=== PATIENT | female | born 1975 | race African-American/Black ===

== ENCOUNTER 2020-08-08 13:13 | Outpatient (CLI) | payer OTHER | END 2020-08-08 22:27 | disposition home or self-care (01) | LOC: LAB 13:13 | DX: Z20.828 Contact with and (suspected) exposure to other viral communicable diseases (principal); J02.9 Acute pharyngitis, unspecified | CPT/HCPCS: 87635; G2023; U0003 ==

== ENCOUNTER 2020-08-20 10:36 | Outpatient (CLI) | payer OTHER | END 2020-08-20 23:23 | disposition home or self-care (01) | LOC: MAMMO 10:36 | DX: Z12.31 Encounter for screening mammogram for malignant neoplasm of breast (principal) ==

== ENCOUNTER 2020-09-02 10:08 | Outpatient (CLI) | payer OTHER | END 2020-09-02 19:04 | disposition home or self-care (01) | LOC: MAMMO 10:08 | DX: N63.20 Unspecified lump in the left breast, unspecified quadrant (principal); N63.10 Unspecified lump in the right breast, unspecified quadrant; R92.8 Other abnormal and inconclusive findings on diagnostic imaging of breast ==

== ENCOUNTER 2020-11-11 09:12 | Outpatient (CLI) | payer OTHER ==
[2020-11-11 09:39] LABS: PLATELET COUNT 281 K/uL (152-353)
== END 2020-11-11 23:15 | disposition home or self-care (01) ==
LOC: RAD 09:12
PROVIDERS: ATTEND Family Medicine
DX: R10.9 Unspecified abdominal pain (principal); K21.9 Gastro-esophageal reflux disease without esophagitis; R11.0 Nausea; M54.9 Dorsalgia, unspecified; Z98.890 Other specified postprocedural states
CPT/HCPCS: 36415; 80053; 81000; 82150; 83690; 84439; 84443; 85027

== ENCOUNTER 2020-12-05 09:38 | Outpatient (CLI) | payer OTHER | END 2020-12-05 21:49 | disposition home or self-care (01) | LOC: RAD 09:38 | PROVIDERS: ATTEND Family Medicine | DX: M25.511 Pain in right shoulder (principal) ==

== ENCOUNTER 2021-01-09 09:25 | Outpatient (CLI) | payer OTHER ==
[2021-01-09 09:41] LABS: PLATELET COUNT 329 K/uL (152-353)
== END 2021-01-09 19:12 | disposition home or self-care (01) ==
LOC: LABW 09:25
PROVIDERS: ATTEND Family Medicine
DX: E78.5 Hyperlipidemia, unspecified (principal); I10 Essential (primary) hypertension; G89.4 Chronic pain syndrome; R73.9 Hyperglycemia, unspecified; R63.5 Abnormal weight gain; D64.9 Anemia, unspecified
CPT/HCPCS: 36415; 80061; 81000; 83036; 84439; 84443; 85027

== ENCOUNTER 2021-01-14 10:08 | Day surgery (SDC) | payer OTHER ==
[~2021-01-14] VITALS: Ht 30.5 cm; Wt 0.5 kg
== END 2021-01-14 14:15 | disposition home or self-care (01) ==
LOC: OR 10:08
PROVIDERS: ATTEND Internal Medicine Gastroenterology
PROC: 0DB68ZZ Excision of Stomach, Via Natural or Artificial Opening Endoscopic (ICD-10-PCS; principal; 2021-01-14)
PROC: 0DB88ZZ Excision of Small Intestine, Via Natural or Artificial Opening Endoscopic (ICD-10-PCS; 2021-01-14)
PROC: 0D738ZZ Dilation of Lower Esophagus, Via Natural or Artificial Opening Endoscopic (ICD-10-PCS; 2021-01-14)
DX: K21.00 Gastro-esophageal reflux disease with esophagitis, without bleeding (principal); K29.50 Unspecified chronic gastritis without bleeding; K29.80 Duodenitis without bleeding; K22.2 Esophageal obstruction; R10.13 Epigastric pain; R13.19 Other dysphagia; R11.0 Nausea; R19.7 Diarrhea, unspecified; Z20.828 Contact with and (suspected) exposure to other viral communicable diseases
CPT/HCPCS: 87635; J2704; U0003

== ENCOUNTER 2021-02-04 07:57 | Outpatient (CLI) | payer OTHER | END 2021-02-04 21:29 | disposition home or self-care (01) | LOC: US 07:57 | PROVIDERS: ATTEND Internal Medicine Gastroenterology | DX: R10.11 Right upper quadrant pain (principal); R10.13 Epigastric pain ==

== ENCOUNTER 2021-03-11 11:03 | Outpatient (CLI) | payer OTHER | END 2021-03-11 21:32 | disposition home or self-care (01) | LOC: NM 11:03 | PROVIDERS: ATTEND Internal Medicine Gastroenterology | DX: R10.11 Right upper quadrant pain (principal); K80.80 Other cholelithiasis without obstruction | CPT/HCPCS: A9537 ==

== ENCOUNTER 2021-06-24 10:54 | Outpatient (CLI) | payer OTHER | END 2021-06-24 23:00 | disposition home or self-care (01) | LOC: US 10:54 | PROVIDERS: ATTEND Family Medicine | DX: R10.2 Pelvic and perineal pain (principal); N92.0 Excessive and frequent menstruation with regular cycle; R63.4 Abnormal weight loss ==

== ENCOUNTER 2021-07-23 13:35 | Outpatient (CLI) | payer OTHER ==
[2021-07-23 14:07] LABS: PLATELET COUNT 330 K/uL (152-353)
[2021-07-23 14:31] LABS: POTASSIUM 3.5 mmol/L (3.6-5.2)
== END 2021-07-23 18:00 | disposition home or self-care (01) ==
LOC: LABW 13:35
PROVIDERS: ATTEND Family Medicine
DX: D64.9 Anemia, unspecified (principal); I10 Essential (primary) hypertension; R73.03 Prediabetes; E78.5 Hyperlipidemia, unspecified
CPT/HCPCS: 36415; 80053; 80061; 81000; 82306; 82728; 83036; 83540; 83550; 84439; 84443; 85027

== ENCOUNTER 2021-07-29 08:16 | Outpatient (CLI) | payer OTHER | END 2021-07-29 19:20 | disposition home or self-care (01) | LOC: NM 08:16 | PROVIDERS: ATTEND Internal Medicine Gastroenterology | DX: R11.2 Nausea with vomiting, unspecified (principal) | CPT/HCPCS: A9541 ==

== ENCOUNTER 2021-10-13 14:49 | Outpatient (CLI) | payer OTHER | END 2021-10-13 18:54 | disposition home or self-care (01) | LOC: MAMMO 14:49 | PROVIDERS: ATTEND Family Medicine | DX: Z12.31 Encounter for screening mammogram for malignant neoplasm of breast (principal) ==

== ENCOUNTER 2021-11-11 08:47 | Outpatient (CLI) | payer OTHER | END 2021-11-11 18:55 | disposition home or self-care (01) | LOC: US 08:47 | PROVIDERS: ATTEND Family Medicine | DX: R92.8 Other abnormal and inconclusive findings on diagnostic imaging of breast (principal) ==

== ENCOUNTER 2022-07-28 09:06 | Outpatient (CLI) | payer OTHER | END 2022-07-28 19:09 | disposition home or self-care (01) | LOC: RAD 09:06 | PROVIDERS: ATTEND Family Medicine | DX: R10.9 Unspecified abdominal pain (principal); R11.2 Nausea with vomiting, unspecified; K27.9 Peptic ulcer, site unspecified, unspecified as acute or chronic, without hemorrhage or perforation ==

== ENCOUNTER 2023-07-27 14:51 | Outpatient (CLI) | payer OTHER ==
[2023-07-27 15:24] LABS: PLATELET COUNT 267 K/uL (152-353)
[2023-07-27 15:32] LABS: POTASSIUM 3.7 mmol/L (3.6-5.2)
== END 2023-07-27 19:30 | disposition home or self-care (01) ==
LOC: CT 14:51
PROVIDERS: ATTEND Family Medicine
DX: M79.652 Pain in left thigh (principal); R60.0 Localized edema; Z80.8 Family history of malignant neoplasm of other organs or systems
CPT/HCPCS: 36415; 80053; 85027; Q9963